=== PATIENT | male | born 1980 | race Hispanic/Latino ===

== ENCOUNTER 2020-10-22 20:41 | Inpatient (IN) | payer OTHER ==
[~2020-10-22] VITALS: Ht 177.8 cm; Wt 114.0 kg
[2020-10-22 21:14] LABS: INR 1.65 (0.85-1.15); PROTHROMBIN TIME 17.2 SEC (9.6-11.6)
[2020-10-22 21:16] LABS: PARTIAL THROMBOPLASTIN TIME 28.5 SEC (26.3-35.5)
[2020-10-22 21:37] LABS: APPEARANCE,URINE Clear (CLEAR); BILIRUBIN,URINE Negative (NEGATIVE); COLOR,URINE Yellow (YELLOW); GLUCOSE, URINE (UA) Negative (NEGATIVE); KETONES,URINE Negative (NEGATIVE); LEUKOCYTE ESTERASE ,URINE Trace (NEGATIVE); NITRATE,URINE Negative (NEGATIVE); OCCULT BLOOD,URINE Negative (NEGATIVE); PROTEIN,URINE Trace mg/dL (NEGATIVE); UROBILINOGEN,URINE 0.2 mg/dL (0.2-1.0)
[2020-10-22 21:45] LABS: BASOPHILS % (AUTO) 0.4 % (0.0-5.0); EOSINOPHILS % (AUTO) 2.5 % (0.0-8.0); MEAN CORPUSCULAR HEMOGLOBIN 15.4 pg (27.0-33.0); MEAN CORPUSCULAR HGB CONC 24.8 g/dL (32.0-36.0); MEAN CORPUSCULAR VOLUME 62.1 fL (79-99); MONOCYTES % (AUTO) 12.6 % (3.0-13.0); NEUTROPHILS % (AUTO) 60.7 % (40.0-77.0); PLATELET COUNT (AUTO) 72 K/uL (130-400); RED BLOOD CELL COUNT(AUTO) 1.69 MIL/uL (4.50-6.20); RED CELL DISTRIBUTION WIDTH 20.4 % (11.0-15.5); WHITE BLOOD COUNT (AUTO) 2.4 K/uL (4.8-10.8)
[2020-10-22 21:46] LABS: HEMATOCRIT 10.5 % (42-54)
[2020-10-22 22:01] LABS: AMPHET/METH SCREEN,URINE NEGATIVE (NEGATIVE); BARBITURATE SCREEN, URINE NEGATIVE (NEGATIVE); BENZODIAZEPINES SCREEN,URINE NEGATIVE (NEGATIVE); CANNABINOID SCREEN,URINE NEGATIVE (NEGATIVE); COCAINE SCREEN,URINE NEGATIVE (NEGATIVE); OPIATE SCREEN,URINE NEGATIVE (NEGATIVE); PHENCYCLIDINE SCREEN,URINE NEGATIVE (NEGATIVE)
[2020-10-22 22:02] LABS: ALBUMIN 2.6 g/dL (3.5-5.0); BILIRUBIN,TOTAL 2.8 mg/dL (0.2-1.0); CREATININE 0.9 mg/dL (0.5-1.5); TOTAL PROTEIN, SERUM 6.7 g/dL (6.0-8.3)
[2020-10-22 22:03] LABS: BACTERIA,URINE Few /HPF (None Seen); RBC,URINE 0-1 /HPF (0-1)
[2020-10-22 22:04] LABS: MUCUS,URINE Few LPF (None Seen); SQUAMOUS EPITHELIAL CELL,UR 0-2 /HPF (0-2)
[2020-10-22 22:07] LABS: LYMPHOCYTES % (MANUAL) 21 % (22-44); MONOCYTES % (MANUAL) 9 % (2-9); SEGMENTED NEUTROPHILS % 70 % (40-70)
[2020-10-22 22:08] LABS: MAN.DIFF COMMENT-IMPRESSION MANUAL DIFFERENTIAL; PLATELET MORPHOLOGY COMMENT DECREASED
[2020-10-22 22:10] LABS: POTASSIUM 2.9 mmol/L (3.5-5.1)
[2020-10-22] MEDS ORDERED: FAMOTIDINE 20MG TAB ONE (22:30)
[2020-10-22] MEDS ORDERED: FAMOTIDINE 20MG VIAL IV ONE (22:34)
[2020-10-23] VITALS (30 sets, daily range): BP systolic 101–131; BP diastolic 51–87
[2020-10-23] MEDS ORDERED: 0.9%NACL 100ML 100 ML IV ONE ×3 (00:02→09:41)
[2020-10-23] MEDS ORDERED: OCTREOTIDE ACETATE 100 MCG/ML AMP ONE ×2 (00:13→00:14)
[2020-10-23] MEDS ORDERED: POTASSIUM CHLORIDE 20MEQ/100ML 100 ML IV PRN ×2 (00:15)
[2020-10-23] MEDS ORDERED: OCTREOTIDE ACETATE 1,250 MCG in 0.9% NACL 250ML 250 ML IV SCH (00:15)
[2020-10-23] MEDS ORDERED: POTASSIUM CHLORIDE 10% ELIXIR 20 MEQ/15 ML UDCUP PO PRN (00:15)
[2020-10-23] MEDS ORDERED: ALBUTEROL 0.083% 2.5 MG/3 ML INH IH PRN (00:15)
[2020-10-23] MEDS ORDERED: PANTOPRAZOLE 40MG INJ 80 MG in 0.9%NACL 100ML 100 ML IVP SCH (00:15)
[2020-10-23] MEDS ORDERED: PHARMACY COMMUNICATION MISC PRN (00:15)
[2020-10-23] MEDS ORDERED: 0.9% NACL 250ML 250 ML IV ONE ×3 (00:15→14:22)
[2020-10-23 02:45] LABS: CREATININE 0.8 mg/dL (0.5-1.5)
[2020-10-23] MEDS ORDERED: CEFTRIAXONE 1G VIAL ONE (02:58)
[2020-10-23] MEDS: CEFTRIAXONE 1G VIAL IV SCH (03:00)
[2020-10-23] MEDS ORDERED: KCL 20 MEQ ERTAB PO ONE (03:15)
[2020-10-23 05:23] LABS: BASOPHILS % (AUTO) 0.3 % (0.0-5.0); EOSINOPHILS % (AUTO) 4.9 % (0.0-8.0); LYMPHOCYTES % (AUTO) 19.9 % (21.0-51.0); MEAN CORPUSCULAR HEMOGLOBIN 20.9 pg (27.0-33.0); MEAN CORPUSCULAR HGB CONC 29.4 g/dL (32.0-36.0); MEAN CORPUSCULAR VOLUME 70.9 fL (79-99); MONOCYTES % (AUTO) 13.6 % (3.0-13.0); PLATELET COUNT (AUTO) 60 K/uL (130-400); RED CELL DISTRIBUTION WIDTH 25.9 % (11.0-15.5); WHITE BLOOD COUNT (AUTO) 2.9 K/uL (4.8-10.8)
[2020-10-23 05:26] LABS: HEMATOCRIT 16.3 % (42-54)
[2020-10-23 05:37] LABS: ALBUMIN 2.3 g/dL (3.5-5.0); BILIRUBIN,TOTAL 4.2 mg/dL (0.2-1.0); CREATININE 0.8 mg/dL (0.5-1.5); TOTAL PROTEIN, SERUM 5.9 g/dL (6.0-8.3)
[2020-10-23 08:12] LABS: HEMATOCRIT 17.3 % (42-54)
[2020-10-23 08:17] LABS: CREATININE 0.8 mg/dL (0.5-1.5); POTASSIUM 3.4 mmol/L (3.5-5.1)
[2020-10-23 08:20] LABS: INR 1.56 (0.85-1.15); PROTHROMBIN TIME 16.3 SEC (9.6-11.6)
[2020-10-23 08:22] LABS: PARTIAL THROMBOPLASTIN TIME 30.6 SEC (26.3-35.5)
[2020-10-23] MEDS: FOLIC ACID 1 MG TABLET PO SCH (09:00)
[2020-10-23] MEDS: MULTIVITAMIN TABLET PO SCH (09:00)
[2020-10-23] MEDS ORDERED: PANTOPRAZOLE 40 MG/VIAL ONE ×3 (09:40→23:25)
[2020-10-23] MEDS ORDERED: PROPOFOL 10 MG/ML 20ML VIAL IV ONE ×2 (10:56→11:01)
[2020-10-23] MEDS ORDERED: FUROSEMIDE 20MG VIAL IVP SCH (14:00)
[2020-10-23] MEDS ORDERED: PHARMACY COMMUNICATION MISC SCH (15:00)
[2020-10-23] MEDS: PANTOPRAZOLE 40 MG TAB DR PO SCH ×2 (17:03→20:06)
[2020-10-23] MEDS: BENZONATATE 100 MG CAPSULE PO SCH (20:06)
[2020-10-23] MEDS: KCL 20 MEQ ERTAB PO PRN (20:07)
[2020-10-23 22:09] LABS: HEMATOCRIT 21.7 % (42-54)
[2020-10-23] MEDS ORDERED: PANTOPRAZOLE 40 MG/VIAL IVP STA (23:30)
[2020-10-23] MEDS ORDERED: SIMETHICONE 80 MG TAB.CHEW PO PRN (23:30)
[2020-10-24] VITALS (19 sets, daily range): BP systolic 102–129; BP diastolic 54–85
[2020-10-24] MEDS: CEFTRIAXONE 1G VIAL IV SCH (02:51)
[2020-10-24 04:55] LABS: BASOPHILS % (AUTO) 0.7 % (0.0-5.0); EOSINOPHILS % (AUTO) 4.6 % (0.0-8.0); HEMATOCRIT 24.7 % (42-54); LYMPHOCYTES % (AUTO) 16.3 % (21.0-51.0); MEAN CORPUSCULAR HEMOGLOBIN 23.1 pg (27.0-33.0); MEAN CORPUSCULAR HGB CONC 30.4 g/dL (32.0-36.0); MEAN CORPUSCULAR VOLUME 76.2 fL (79-99); MONOCYTES % (AUTO) 13.4 % (3.0-13.0); NUCLEATED RED BLOOD CELLS 1.3 % (0.0-0.19); PLATELET COUNT (AUTO) 72 K/uL (130-400); RED BLOOD CELL COUNT(AUTO) 3.24 MIL/uL (4.50-6.20); RED CELL DISTRIBUTION WIDTH 22.5 % (11.0-15.5); WHITE BLOOD COUNT (AUTO) 3.1 K/uL (4.8-10.8)
[2020-10-24 05:18] LABS: CREATININE 0.9 mg/dL (0.5-1.5); POTASSIUM 3.5 mmol/L (3.5-5.1)
[2020-10-24] MEDS: KCL 20 MEQ ERTAB PO PRN ×2 (05:31→08:05)
[2020-10-24] MEDS: MULTIVITAMIN TABLET PO SCH (07:59)
[2020-10-24] MEDS: FOLIC ACID 1 MG TABLET PO SCH (07:59)
[2020-10-24] MEDS: BENZONATATE 100 MG CAPSULE PO SCH ×3 (08:03→21:00)
[2020-10-24] MEDS: PANTOPRAZOLE 40 MG TAB DR PO SCH ×2 (08:03→21:00)
[2020-10-24] MEDS: LACTULOSE 20 GM/30 ML UDCUP PO SCH ×2 (09:45→21:00)
[2020-10-24] MEDS ORDERED: FERROUS SULFATE 325 MG TABLET.DR PO SCH (15:45)
[2020-10-25 00:20] VITALS: BP 112/72
[2020-10-25] MEDS: CEFTRIAXONE 1G VIAL IV SCH (02:48)
[2020-10-25 04:20] VITALS: BP 123/73
[2020-10-25 06:11] LABS: CREATININE 0.9 mg/dL (0.5-1.5); POTASSIUM 3.4 mmol/L (3.5-5.1)
[2020-10-25 06:12] LABS: HEPATITIS A ANTIBODY IGM Negative (Negative); HEPATITIS B CORE IGM Negative (Negative); HEPATITIS Bs ANTIGEN SCREEN P Negative (Negative)
[2020-10-25] MEDS: KCL 20 MEQ ERTAB PO PRN ×2 (06:20→09:58)
[2020-10-25 06:35] LABS: HEMATOCRIT 26.5 % (42-54); MEAN CORPUSCULAR HEMOGLOBIN 22.7 pg (27.0-33.0); MEAN CORPUSCULAR HGB CONC 30.2 g/dL (32.0-36.0); MEAN CORPUSCULAR VOLUME 75.1 fL (79-99); NUCLEATED RED BLOOD CELLS 0.5 % (0.0-0.19); RED BLOOD CELL COUNT(AUTO) 3.53 MIL/uL (4.50-6.20); RED CELL DISTRIBUTION WIDTH 23.4 % (11.0-15.5); WHITE BLOOD COUNT (AUTO) 3.8 K/uL (4.8-10.8)
[2020-10-25] MEDS ORDERED: FERROUS SULFATE 325 MG TABLET.DR PO SCH (09:00)
[2020-10-25] MEDS: LACTULOSE 20 GM/30 ML UDCUP PO SCH ×2 (09:30→09:52)
[2020-10-25 09:51] VITALS: BP 119/68
[2020-10-25] MEDS: FOLIC ACID 1 MG TABLET PO SCH (09:51)
[2020-10-25] MEDS: BENZONATATE 100 MG CAPSULE PO SCH (09:52)
[2020-10-25] MEDS: PANTOPRAZOLE 40 MG TAB DR PO SCH (09:52)
[2020-10-25] MEDS: MULTIVITAMIN TABLET PO SCH (09:52)
[2020-10-25] MEDS ORDERED: FERR324T4 PO (10:16)
[2020-10-25] MEDS ORDERED: PANT40TA PO (10:16)
[2020-10-25] MEDS ORDERED: POTA-10 PO (10:19)
[2020-10-25] MEDS ORDERED: FURO20TA6 PO (10:19)
[2020-10-25] MEDS ORDERED: LACT10SO9 PO (10:22)
[2020-10-25] MEDS ORDERED: MVIT PO (13:45)
[2020-10-25 13:56] VITALS: BP 129/81
[2020-10-25] MEDS ORDERED: THIAMINE HCL 100 MG/ML 2ML VIAL IVP SCH (16:00)
== END 2020-10-25 17:30 | disposition home or self-care (01) | DRG 432 ==
LOC: EDH 20:41 → EDHIP 20:42 → UNDOADMIN 10-23 00:03 → 2DH 10-23 12:00 → 3BH 10-24 17:28
PROVIDERS: ADMIT Family Medicine; ATTEND Family Medicine
PROC: 30233N1 Transfusion of Nonautologous Red Blood Cells into Peripheral Vein, Percutaneous Approach (ICD-10-PCS; 2020-10-22)
PROC: 30233K1 Transfusion of Nonautologous Frozen Plasma into Peripheral Vein, Percutaneous Approach (ICD-10-PCS; principal; 2020-10-23)
PROC: 30233R1 Transfusion of Nonautologous Platelets into Peripheral Vein, Percutaneous Approach (ICD-10-PCS; 2020-10-23)
PROC: 06L38CZ Occlusion of Esophageal Vein with Extraluminal Device, Via Natural or Artificial Opening Endoscopic (ICD-10-PCS; 2020-10-23)
DX: K70.31 Alcoholic cirrhosis of liver with ascites (principal); I85.11 Secondary esophageal varices with bleeding; D61.818 Other pancytopenia; E87.1 Hypo-osmolality and hyponatremia; J98.11 Atelectasis; F10.129 Alcohol abuse with intoxication, unspecified; E87.6 Hypokalemia; G47.00 Insomnia, unspecified; K59.00 Constipation, unspecified; K25.9 Gastric ulcer, unspecified as acute or chronic, without hemorrhage or perforation; K29.70 Gastritis, unspecified, without bleeding; D69.6 Thrombocytopenia, unspecified
CPT/HCPCS: 36415; 36430; 43246; 71250; 74176; 80048; 80053; 80074; 80305; 81001; 82140; 82270; 82948; 83690; 83735; 84484; 85014; 85018; 85025; 85027; 85378; 85610; 85730; 86850; 86900; 86901; 86923; 86927; 93971; 94664; 97039; A4606; C9113; G0378; J0696; J1940; J2354; J2704; J3490; J7050; P9016; P9017; P9034

== ENCOUNTER 2022-06-14 23:21 | Emergency (ER) | payer OTHER ==
[~2022-06-14] VITALS: Ht 177.8 cm; Wt 97.5 kg
[~2022-06-14 23:21] MED LIST: FERR324T4 PO; FURO20TA6 PO; LACT10SO9 PO; MVIT PO; PANT40TA PO; POTA-200 PO
[2022-06-14 23:24] VITALS: BP 134/75
[2022-06-15 00:44] LABS: CREATININE 0.5 mg/dL (0.5-1.5); POTASSIUM 3.4 mmol/L (3.5-5.1)
[2022-06-15 00:49] LABS: ALBUMIN 3.6 g/dL (3.5-5.0); TOTAL PROTEIN, SERUM 7.9 g/dL (6.0-8.3)
[2022-06-15 00:51] LABS: INR 1.2 (0.85-1.15); PROTHROMBIN TIME 12.9 SEC (9.6-11.6)
[2022-06-15 00:54] LABS: APPEARANCE,URINE CLEAR (CLEAR); BASOPHILS % (AUTO) 1.2 % (0.0-5.0); BILIRUBIN,URINE NEGATIVE (NEGATIVE); COLOR,URINE COLORLESS (YELLOW); GLUCOSE, URINE (UA) NEGATIVE (NEGATIVE); HEMATOCRIT 31.6 % (42-54); KETONES,URINE NEGATIVE (NEGATIVE); LEUKOCYTE ESTERASE ,URINE NEGATIVE Leu/uL (NEGATIVE); LYMPHOCYTES % (AUTO) 28.3 % (21.0-51.0); MEAN CORPUSCULAR HEMOGLOBIN 21.3 pg (27.0-33.0); MEAN CORPUSCULAR HGB CONC 29.4 g/dL (32.0-36.0); MEAN CORPUSCULAR VOLUME 72.3 fL (79-99); MONOCYTES % (AUTO) 10.9 % (3.0-13.0); NEUTROPHILS % (AUTO) 42.6 % (40.0-77.0); NITRATE,URINE NEGATIVE (NEGATIVE); OCCULT BLOOD,URINE NEGATIVE (NEGATIVE); PLATELET COUNT (AUTO) 60 K/uL (130-400); PROTEIN,URINE NEGATIVE (NEGATIVE); RED BLOOD CELL COUNT(AUTO) 4.37 MIL/uL (4.50-6.20); RED CELL DISTRIBUTION WIDTH 19.9 % (11.0-15.5); UROBILINOGEN,URINE 0.2 mg/dL (0.2-1.0); WHITE BLOOD COUNT (AUTO) 2.5 K/uL (4.8-10.8)
[2022-06-15] MEDS ORDERED: MVIT PO (01:50)
[2022-06-15] MEDS ORDERED: LACT10SO9 PO (01:50)
[2022-06-15] MEDS ORDERED: POTA-200 PO (01:50)
[2022-06-15] MEDS ORDERED: FERR324T4 PO (01:50)
[2022-06-15] MEDS ORDERED: PANT40TA PO (01:50)
[2022-06-15] MEDS ORDERED: FURO20TA6 PO (01:50)
[2022-06-15 02:00] LABS: BAND NEUTROPHILS % (MANUAL) 2 % (0-2); BASOPHILS % (MANUAL) 2 % (0-2); EOSINOPHILS % (MANUAL) 13 % (1-6); LYMPHOCYTES % (MANUAL) 22 % (22-44); MAN.DIFF COMMENT-IMPRESSION MANUAL DIFFERENTIAL; MONOCYTES % (MANUAL) 5 % (2-9); REACTIVE LYMPHOCYTES 3 % (0-0); SEGMENTED NEUTROPHILS % 53 % (40-70)
== END 2022-06-15 02:41 | disposition home or self-care (01) ==
LOC: EDH 23:21
DX: K74.60 Unspecified cirrhosis of liver (principal); R60.0 Localized edema; Z20.822 Contact with and (suspected) exposure to COVID-19; Z79.899 Other long term (current) drug therapy
CPT/HCPCS: 99285; 71045; 87635; 84484; 80053; 82140; 85025; 85610; 85730; 86850; 86900; 86901; 81003; 36415; 93005; 93970; C9803